=== PATIENT | female | born 1945 | race Caucasian/White ===

== ENCOUNTER 2020-02-10 15:02 | Outpatient (CLI) | payer MEDICARE, SELFPAY ==
--- NOTE | ~2020-02-10 | DEXA_ITS ---
Bone Density Report Name: Nicole Lance Age: 75 Sex: Female Ethnicity: White Date of : 1945 Indication: postmenopausal osteoporosis; monitoring treatment; height loss; prior fracture; seizure disorder; Referring Provider: CHRIS SANCHEZ Study: Bone densitometry was performed. Exam Date: February 10, 2020 Accession number: [id number] Bone Density: Region BMD T-score Z-score Classification AP Spine (L1-L4) 0.958 -0.8 1.5 Normal Femoral Neck (Left) 0.587 -2.4 -0.3 Osteopenia Total Hip (Left) 0.742 -1.6 0.1 Osteopenia Total Hip Bilateral Avg 0.706 -1.9 -0.2 Osteopenia Femoral Neck (Right) 0.571 -2.5 -0.5 Osteoporosis Total Hip (Right) 0.669 -2.2 -0.5 Osteopenia World Health Organization criteria for BMD impression classify patients as: Normal (T-score at or above -1.0), Osteopenia (T-score between -1.0 and -2.5), or Osteoporosis (T-score at or below -2.5). 10-year Fracture Risk: FRAX not reported because: Some T-score for Spine Total or Hip Total or Femoral Neck at or below -2.5 Treated for osteoporosis Previous Exams: Region Exam Age BMD T-score BMD Change BMD Change Date g/cm2 vs Baseline vs Previous AP Spine(L1-L4) 02/10/2020 75 0.958 -0.8 0.088(10.1%)# 0.088(10.1%)# 12/24/2015 70 0.870 -1.6 Total Hip(Left) 02/10/2020 75 0.742 -1.6 0.013(1.8%)# -0.003(-0.5%) 01/08/2018 72 0.745 -1.6 0.016(2.2%)# 0.016(2.2%)# 12/24/2015 70 0.729 -1.7 Total Hip(Right) 02/10/2020 75 0.669 -2.2 0.036(5.6%)# 0.047(7.6%)* 01/08/2018 72 0.622 -2.6 -0.012(-1.9%)# -0.012(-1.9%)# 12/24/2015 70 0.633 -2.5 *Denotes significance at 95% confidence level, LSC for AP Spine = 0.022 g/cm2, LSC for Total Hip = 0.027 g/cm2 Clinical Information Provided by Patient: Has had a low trauma fracture Is being treated for osteoporosis Has used the following medications: Vitamin D Has the following medical conditions: Any Seizure Disorders Patient maximum height was 67.5 Menopause Age: 38 No regular weight bearing exercise Drinks caffeinated beverages Onset of menses at age 13 Number of children 1 Impression: The patient has established osteoporosis, based on the Right Femoral Neck T-score and the existence of a prior fracture. The patient has risk factors, including: previous fracture. No significant bone loss was observed. Discussion: PATIENT UNDER TREATMENT WITH NO SIGNIFICANT BMD LOSS SINCE LAST EXAM. In an untreated patient, BMD
--- NOTE | ~2020-02-10 | MM_ITS ---
EXAMINATION: MM screening mammo BI HISTORY: Screening mammogram TECHNIQUE: Full field digital craniocaudal and mediolateral oblique views of both breasts were obtain ed. CAD analysis was submitted and interpreted. COMPARISON: 01/10/2019, 01/08/2018, 01/04/2016 BREAST PARENCHYMAL COMPOSITION: There are scattered areas of fibroglandular density. FINDINGS: There is no evidence of suspicious mass, calcification, or architectural distortion in eit her breast to suggest malignancy. There has been no suspicious interval change. IMPRESSION: 1. No mammographic evidence of malignancy. 2. Recommend routine screening mammography in one year. BI-RADS Category 1: Negative Reviewed, dictated and finalized at location A.
== END 2020-02-10 15:03 | disposition home or self-care (01) ==
LOC: ANHIMG 15:10
PROVIDERS: PCP Internal Medicine; Visit Provider Obstetrics & Gynecology Gynecology
DX: Z12.31 Encounter for screening mammogram for malignant neoplasm of breast (principal); Z78.0 Asymptomatic menopausal state; M85.89 Other specified disorders of bone density and structure, multiple sites; M81.0 Age-related osteoporosis without current pathological fracture
CPT/HCPCS: 77063; 77067; 77080

== ENCOUNTER 2021-11-12 11:15 | Outpatient (CLI) | payer MEDICARE, SELFPAY | END 2021-11-12 11:16 | disposition home or self-care (01) | LOC: ANHAUDIO 11:16 | PROVIDERS: PCP Internal Medicine; Visit Provider Nurse Practitioner Family | DX: H91.90 Unspecified hearing loss, unspecified ear (principal) | CPT/HCPCS: 92557; 92567 ==

== ENCOUNTER 2021-12-13 11:48 | Outpatient (CLI) | payer MEDICARE, SELFPAY ==
--- NOTE | ~2021-12-13 | US_ITS ---
EXAMINATION: US venous doppler UE RT EXAM DATE: 12/13/2021 12:42 INDICATION: M79.89 - Other specified soft tissue disorders TECHNIQUE: Multiple grayscale, color flow, Doppler sonographic images of the right upper extremity ve ins obtained by technologist. Compression was performed where able. There is no prior study for brianne osorio. FINDINGS: Right upper extremity: Jugular vein: ------------>Thrombosed. Subclavian vein: --------> Normal. Axillary vein:------------> Normal. Brachial vein:-----------> Normal. Basilic vein: ------------> Normal. Cephalic vein: ----------> Normal. Radial vein: ------------> Normal. Ulnar vein: > Normal. IMPRESSION: Positive for right internal jugular deep venous thrombosis. Reviewed, dictated and finalized at location B.
== END 2021-12-13 11:49 | disposition home or self-care (01) ==
PROVIDERS: PCP Internal Medicine; Visit Provider Internal Medicine
DX: M79.89 Other specified soft tissue disorders (principal)
CPT/HCPCS: 93971

== ENCOUNTER → 2022-06-30 11:41 | Outpatient (CLI) | payer MEDICARE, SELFPAY ==
--- NOTE | ~2022-06-30 | DEXA_ITS ---
Bone Density Report Name: AD KAPOOR Age: 77 Sex: Female Ethnicity: White Date of : 1945 Indication: postmenopausal; screening for osteoporosis; height loss; prior fracture; seizure disorder; Referring Provider: CHRIS SANCHEZ Study: Bone densitometry was performed. Exam Date: June 30, 2022 Accession number: [id number] Bone Density: Region BMD T-score Z-score Classification AP Spine (L1-L4) 1.025 -0.2 2.3 Normal Femoral Neck (Left) 0.584 -2.4 -0.2 Osteopenia Total Hip (Left) 0.776 -1.4 0.5 Osteopenia Femoral Neck (Right) 0.582 -2.4 -0.3 Osteopenia Total Hip (Right) 0.714 -1.9 0.0 Osteopenia Total Hip Mean 0.745 -1.7 0.3 Osteopenia World Health Organization criteria for BMD impression classify patients as: Normal (T-score at or above -1.0), Osteopenia (T-score between -1.0 and -2.5), or Osteoporosis (T-score at or below -2.5). 10-year Fracture Risk(1): Major Osteoporotic Fracture 22% Hip Fracture 6.6% Reported Risk Factors: [place] (), Neck BMD=0.582, BMI=22.6, previous fracture (1) FRAX(R) Version 3.08. Fracture probability calculated for an untreated patient. Fracture probability may be lower if the patient has received treatment. Previous Exams: Region Exam Age BMD T-score BMD Change BMD Change Date g/cm2 vs Baseline vs Previous AP Spine(L1-L4) 06/30/2022 77 1.025 -0.2 0.117* 0.093* 12/15/2005 60 0.932 -1.0 0.024* 0.024* 08/23/2004 59 0.908 -1.3 Total Hip(Left) 06/30/2022 77 0.776 -1.4 -0.089* -0.068* 12/15/2005 60 0.844 -0.8 -0.021 -0.021 08/23/2004 59 0.864 -0.6 Total Hip(Right) 06/30/2022 77 0.714 -1.9 -0.224* -0.187* 12/15/2005 60 0.900 -0.3 -0.037* -0.037* 08/23/2004 59 0.938 0.0 *Denotes significance at 95% confidence level, LSC for AP Spine = 0.022 g/cm2, LSC for Total Hip = 0.027 g/cm2 Clinical Information Provided by Patient: Has had a low trauma fracture Has used the following medications: Prolia (i.e. denosumab), Vitamin D, Calcium Has the following medical conditions: Any Seizure Disorders Patient maximum height was 67.5 Menopause Age: 45 No regular weight bearing exercise Drinks caffeinated beverages Onset of menses at age 11 Number of children 1 Impression: The patient has low bone mass, based on the Left Femoral Neck T-score. The patient h
--- NOTE | ~2022-06-30 | MM_ITS ---
EXAMINATION: MM screening eva BI w lacey HISTORY: Screening TECHNIQUE: Craniocaudal and mediolateral oblique 3-D tomosynthesis images were obtained and synthetic 2-D images were generated. CAD analysis was submitted and interpreted. COMPARISON: Comparison to multiple prior studies sequentially, with oldest reviewed study dated 01/03. BREAST PARENCHYMAL COMPOSITION: There are scattered areas of fibroglandular density. FINDINGS: There is no evidence of suspicious mass, calcification, or architectural distortion to sugg est malignancy in either breast. There has been no suspicious interval change. IMPRESSION: 1. No mammographic evidence of malignancy. 2. Recommend routine screening mammography in one year. BI-RADS Category 1: Negative Reviewed, dictated and finalized at location A.
== END ==
PROVIDERS: PCP Internal Medicine; Visit Provider Obstetrics & Gynecology Gynecology
DX: Z12.31 Encounter for screening mammogram for malignant neoplasm of breast (principal); Z78.0 Asymptomatic menopausal state; M85.89 Other specified disorders of bone density and structure, multiple sites
CPT/HCPCS: 77063; 77067; 77080

== ENCOUNTER 2023-02-21 00:13 | Emergency (ER) | payer MEDICARE, SELFPAY ==
[2023-02-21] VITALS (10 sets, daily range): BP systolic 111–134; BP diastolic 50–55; PULSE 60–99; RESP 13–22; TEMP 36.2; O2SAT 95–100
--- NOTE | 2023-02-21 00:51 | ECG_ITS ---
Measurements Intervals [place] Rate: 93 P: 59 MT: 171 QRS: 31 QRSD: 64 T: 56 QT: 316 QTc: 393 Interpretive Statements SINUS RHYTHM LOW QRS VOLTAGE IN PRECORDIAL LEADS [QRS DEFLECTION < 1.0 mV IN CHEST LEADS] NONSPECIFIC ST CHANGES COMPARED TO ECG 03/22/2019 13:54:12 THE INFERIOR CHANGES HAVE IMPROVED Electronically Signed On 02-21-2023 9:02:38 CDT by Alice Benton M.D.
[2023-02-21] MEDS: ONDANSETRON INJ 4 MG/2 ML VIAL IV PUSH (01:01)
[2023-02-21] MEDS: SODIUM CHLORIDE 0.9% IV 1,000 ML 999 ML IV CONT (01:02)
[2023-02-21 01:35] LABS: Basophils Absolute Auto 0.1 K/mm3 (0.0-0.1); Basophils Percent Auto 0.5 % (0.2-1.2); Eosinophils Absolute Auto 0.1 K/mm3 (0-0.3); Eosinophils Percent Auto 0.4 % (0-4.4); Hematocrit 42.1 % (37.0-47.0); Hemoglobin 13.5 g/dL (12.0-15.0); Immature Granulocyte Absolute 0.03 K/mm3 (0.00-0.031); Immature Granulocyte Percent A 0.3 % (0-0.5); Lymphocytes Absolute Auto 0.51 K/mm3 (0.9-3.2); Lymphocytes Percent Auto 4.3 % (18.3-44.2); Mean Corpuscular HGB Conc 32.1 g/dl (32-36); Mean Corpuscular Hemoglobin 32.4 pg (26-34); Mean Platelet Volume 9.6 fl (7.4-10.4); Monocytes Absolute Auto 1.3 K/mm3 (0.1-0.6); Neutrophils Absolute Auto 9.9 K/mm3 (1.3-6.7); Neutrophils Percent Auto 83.5 % (45.5-73.1); Platelet Count Result 173 k/mm3 (150-375); Red Blood Count 4.17 M/mm3 (4.2-5.4); Red Cell Distribution Width 13.3 % (11.5-14.5); White Blood Count 11.9 K/mm3 (4.5-10.0)
[2023-02-21 01:46] LABS: Lactic Acid Reflex 1.4 mmol/L (0.7-2.0)
[2023-02-21 01:53] LABS: Alanine Aminotransferase 26 U/L (6-35); Albumin Level 4.3 g/dL (3.5-5.1); Alkaline Phosphatase 51 U/L (38-126); Anion Gap 5 mmol/L (8-16); Aspartate Amino Transferase 34 U/L (14-36); Bilirubin,Total 0.5 mg/dL (0.2-1.3); Blood Urea Nitrogen 24 mg/dL (7-17); Calcium 9.1 mg/dL (8.4-10.2); Carbon Dioxide 29 mmol/L (22-30); Chloride 107 mmol/L (98-107); Estimated CRCL calculation 46 ml/min; Estimated Glomerular Filt Rate > 60; Glucose 114 mg/dL (65-110); Lipase 112 U/L (23-300); Magnesium 1.8 mg/dL (1.6-2.3); Potassium 4.3 mmol/L (3.4-5.0); Sodium 141 mmol/L (137-145)
[2023-02-21 01:57] LABS: Troponin I < 0.012 ng/mL (0.000-0.034)
--- NOTE | 2023-02-21 03:29 | ECG_ITS ---
Measurements Intervals [place] Rate: 95 P: 56 [place]: 181 QRS: -7 QRSD: 87 T: 44 QT: 328 QTc: 414 Interpretive Statements SINUS RHYTHM LOW QRS VOLTAGE IN PRECORDIAL LEADS [QRS DEFLECTION < 1.0 mV IN CHEST LEADS] POSSIBLE INFERIOR MYOCARDIAL INFARCTION , OF INDETERMINATE AGE [30 ms Q WAVE IN II/aVF] COMPARED TO ECG 02/21/2023 02:01:14 LOSS OF R-WAVE VOLTAGE IN AVF. ALTERED LEAD POSITION V3 Electronically Signed On 02-27-2023 13:11:51 CDT by Obie Cheng M.D.
[2023-02-21 03:40] LABS: Appearance Urine Cloudy (Clear); Bacteria Urine None Seen /hpf; Bilirubin Urine Negative (Negative); Blood Urine Negative (Negative); Color Urine Yellow (Yellow); Glucose Urine UA Negative (Negative); Hyaline Casts Urine Present /lpf; Ketones Urine Trace mg/dL (Negative); Leukocyte Esterase Ur 2+ LEU/UL (Negative); Nitrate Urine Negative (Negative); Non Pathogenic Casts >20; Protein Urine 1+ mg/dL (Negative); RBC Urine 0-2 /hpf (0-2); Specific Grav Ur 1.018 (1.001-1.035); Squamous Epithelial Cell Urine Occasional /hpf (Few); Urobilinogen Urine 0.2 mg/dL (<2.0); WBC Urine 21-50 /hpf; pH Urine 6.5 (5.0-9.0)
[2023-02-21 03:42] LABS: Add Urine Microscopic? YES
--- NOTE | 2023-02-21 05:37 | ED.GENADULT ---
HPI - General Adult General Chief complaint: Weakness Stated complaint: n/v weakness Time Seen by Provider: 02/21/23 00:39 History of Present Illness HPI narrative: Patient is a 78-year-old female who presents emergency department with chief complaint of nausea vomiting diarrhea. Patient reports that she had sudden onset of diarrhea today and had multiple bouts of vomiting. The patient reports she feels extremely dry and reports that she was extremely weak from the vomiting and diarrhea. Patient reports that she is not having any significant pain and reports no blood in her stool. Related Data Home Medications Medication Instructions Recorded Confirmed denosumab 60 mg/mL subcutaneous 60 mg subcut [id number] 12/22/19 12/16/22 syringe (Prolia) ergocalciferol (vitamin D2) 1,250 1,250 mcg PO WEEKLY 12/22/19 12/16/22 mcg (50,000 unit) capsule (Vitamin D2) lamotrigine 25 mg tablet (Lamictal) 75 mg PO BID 12/22/19 12/16/22 magnesium 42 mg(magnesium L-threo tablet PO 12/22/19 12/16/22 500 mg)-niacinamide 250 mg tablet,ER (Mag-Amide) vitamin B12 0.5 mg-folic acid 1 mg 1 tablet PO DAILY 12/22/19 12/16/22 tablet elderberry fruit 460 mg-elderberry cap PO 03/26/20 12/16/22 flower 115 mg capsule Allergies Allergy/AdvReac Type Severity Reaction Status Date / Time Penicillins Allergy Intermediate Hives Verified 02/21/23 00:13 erythromycin base Allergy Unknown Itching Verified 02/21/23 00:13 Review of Systems Review of Systems: A 10 system review of systems was completed on the patient and is negative except for what is stated in the HPI. Nursing and ancillary documentation was reviewed. [facility] Past Medical History Medical History Cataracts, bilateral CVA (cerebral vascular accident) residual rt sided deficits DVT (deep venous thrombosis) Seizures Surgical History Surgical History History of nasal surgery Hx of craniotomy Hx of shoulder surgery rt shoulder S/P bilateral foot surgery S/P IVC filter Family History Family History Mother Cerebrovascular accident Father Patient's father is Social History Social History Smoking status: Never smoker Second hand tobacco smoke exposure: No Smoking end date: 09/14/70 Alcohol intake: never Alcohol use details: rarely Substance use: current Substance use type: marijuana Current Housing: Decline to Answer Concerned About Future Housing: Decline to Answer Difficulty Paying Gas/Electric Bills: Decline to Answer Difficulty Paying for Meds: Decline to Answer Currently Unemployed: Decline to Answer Education: Decline to Answer Difficulty w/ Childcare or Family Care: Decline to Answer Exam Narrative: GENERAL: Well-appearing, well-nourished, and in no acute distress. HEAD: Normocephalic, atraumatic. EYES: PERRLA and EOMI. ENT: Nares clear, no rhinorrhea or epistaxis. Mucous membranes moist. NECK: Supple. CHEST: Clear to auscultation. No respiratory distress. HEART: Regular rate and rhythm. No murmur heard. Normal peripheral pulses. ABDOMEN: Soft, nontender, nondistended, normal active bowel sounds. EXTREMITIES: Normal range of motion. No edema. SKIN: Warm, dry, no rash. NEURO: No focal deficits. Alert and oriented x3. Patient has baseline deficit to the right side PSYCH: Normal mood and affect. Course Vital Signs Vital signs: Vital Signs Temperature 36.2 C L 02/21/23 00:17 Pulse Rate 60 02/21/23 00:17 Respiratory Rate 16 02/21/23 00:17 Blood Pressure 111/50 L 02/21/23 00:17 Pulse Oximetry 100 02/21/23 00:17 Oxygen Delivery Room Air 02/21/23 00:17 Temperature 36.2 C L 02/21/23 00:17 Pulse Rate 89
[2023-02-21] MEDS: CEPHALEXIN 500 MG CAPSULE PO (06:00)
== END 2023-02-21 06:42 | disposition home or self-care (01) ==
PROVIDERS: Emergency Provider Emergency Medicine; PCP Internal Medicine
DX: K52.9 Noninfective gastroenteritis and colitis, unspecified (principal); N39.0 Urinary tract infection, site not specified; G40.909 Epilepsy, unspecified, not intractable, without status epilepticus; Z86.73 Personal history of transient ischemic attack (TIA), and cerebral infarction without residual deficits; Z86.718 Personal history of other venous thrombosis and embolism; F12.90 Cannabis use, unspecified, uncomplicated; Z87.891 Personal history of nicotine dependence; Z79.01 Long term (current) use of anticoagulants
CPT/HCPCS: 36415; 80053; 81001; 83605; 83690; 83735; 84484; 85025; 87086; 87088; 93005; 96361; 96374; 99284; A9270; J2405; J7030

== ENCOUNTER 2024-03-14 11:18 | Outpatient (CLI) | payer MEDICARE, SELFPAY ==
--- NOTE | ~2024-03-14 | MM_ITS ---
EXAMINATION: MM screening eva BI w lacey HISTORY: Screening mammogram TECHNIQUE: Craniocaudal and mediolateral oblique 3-D tomosynthesis images were obtained and synthetic 2-D images were generated. CAD analysis was submitted and interpreted. COMPARISON: 06/30/2022, 02/10/2020 BREAST PARENCHYMAL COMPOSITION:Not Dense. There are scattered areas of fibroglandular density. FINDINGS: No suspicious mass, calcification, or architectural distortion are identified in either darling ast to suggest malignancy. There has been no suspicious interval change. IMPRESSION: No mammographic evidence of malignancy. Recommend routine screening mammography in one year. BI-RADS Category 1: Negative Reviewed, dictated and finalized at location .
== END 2024-03-14 11:19 ==
LOC: MICIMG 11:20
PROVIDERS: PCP Nurse Practitioner Family; Visit Provider Internal Medicine
DX: Z12.31 Encounter for screening mammogram for malignant neoplasm of breast (principal)
CPT/HCPCS: 77063; 77067